=== PATIENT | female | born 1990 | race American Indian/Alaskan Native ===

== ENCOUNTER 2020-11-22 16:23 | Outpatient (CLI) | payer OTHER, MEDICAID ==
[2020-11-22 17:17] VITALS: BP 127/80
--- NOTE | 2020-11-22 19:06 | Ultrasound Report ---
ULTRASOUND BIOPHYSICAL PROFILE INDICATION / CLINICAL INFORMATION: [facility]. COMPARISON: None available. FINDINGS: BREATHING MOVEMENT = 2 GROSS BODY MOVEMENT = 2 TONE = 2 QUALITATIVE AMNIOTIC FLUID VOLUME = 2 TOTAL BIOPHYSICAL SCORE = 8 AMNIOTIC FLUID INDEX (within normal limits. PRESENTATION: Cephalic. HEART RATE (beats per minute): 161 IMPRESSION: 1. biophysical profile = 05/18 Signer Name: Terry Salcido MD Signed: 11/22/2020 7:01 PM Workstation Name: [employer]
== END 2020-11-22 18:55 | disposition home or self-care (01) ==
LOC: TRG 16:23 → APU 16:24 → TRG 16:25 → APU 16:33 → INTOOBSV 16:37 → APU 16:37 → UNDOADMOB 16:37 → TRG 18:55
PROVIDERS: ATTEND Obstetrics & Gynecology
DX: Z34.03 Encounter for supervision of normal first pregnancy, third trimester (principal); Z3A.40 40 weeks gestation of pregnancy
CPT/HCPCS: 76819

== ENCOUNTER 2020-11-27 08:27 | Inpatient (IN) | payer OTHER, MEDICAID ==
--- NOTE | 2020-11-27 09:19 | History and Physical Report ---
History of Present Illness Date of examination: 11/27/20 (here for IOL) History of present illness: EDC Confirmation: 11/17/2020 Gestational Age: 41w3d Past History : 3 Term Births: 0 Premature Births: 0 Living Children: 0 Para: 0 Mult. Births: 0 Prev : 0 Aborta: 2 Elect. Ab: 1 Spont. 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 Infection History Hx of STD: chlamydia HIV Risk Eval: low risk Hepatitis B Risk Eval: low risk Personal hx. of genital herpes: no Partner hx. of genital herpes: no Rash, Viral, or Febrile illness since last LMP? no Varicella/Chicken Pox Status: Previous Disease TB Risk: no Genetic History Congenital Heart Defect: Mom: no Dad: no Sona Disease: Mom: no Dad: no Thalassemia Mom: no Dad: no Neural Tube Defect Mom: no Dad: no Down's Syndrome Mom: no Dad: no Leroy-Sachs Mom: no Dad: no Sickle Cell Disease/Trait Mom: no Dad: no Hemophilia Mom: no Dad: no Muscular Dystrophy Mom: no Dad: no Cystic Fibrosis Mom: no Dad: no [place] Chorea Mom: no Dad: no Mental Retardation Mom: no Dad: no Fragile X Mom: no Dad: no Other Genetic/Chromosomal Disorder Mom: no Dad: no Child w/other defect Mom: no Dad: no Enviromental Exposures Xray Exposure: no Medication, drug, or alcohol use since LMP: no Chemical/Other Exposure: no Exposure to Cat Liter: no Hx of Parvovirus (Fifth Disease): no 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 Current Allergies: No known allergies Past History - Obstetrical History Expected Date of Delivery: 11/17/20 Actual Gestation: 41 Week(s) 3 Day(s) : 3 Para: 0 Hx # Term Pregnancies: 0 Number of Pregnancies: 0 Spontaneous Abortions: 1 Induced : 1 Number of Living Children: 0 Medications and Allergies Allergies Allergy/AdvReac Type Severity Reaction Status Date / Time No Known Allergies Allergy Verified 11/22/20 17:06 Home Medications Medication Instructions Recorded Confirmed Last Taken Type Acetaminophen/Codeine 1 tab PO Q6H PRN #15 tab 12/18/14 Unknown Rx [Acetaminophen-Codeine #3 TAB] Active Meds: Active Medications Mineral Oil (Mineral Oil 30 Ml Oral Liqd) 30 ml PO QHS PRN PRN Reason: Constipation Terbutaline Sulfate (Terbutaline 1 Mg/1 Ml Inj) 0.25 mg SUB-Q ONCE PRN PRN Reason: Hyperstimulation/Hypertonicity Review of Systems All systems: negative - Physical Exam Breasts: Positive: deferred Cardiovascular: Regular rate, Normal S1, Normal S2 Lungs: Positive: Clear to auscultation Abdomen: Positive: normal appearance, soft, normal bowel sounds. Negative: distention, tenderness Genitourinary (Female): Positive: normal external genitalia Vulva: both: normal Vagina: Positive: normal moisture. Negative: discharge Cervix: Negative: lesion, discharge Uterus: Positive: normal size, normal contour Adnexa: both: normal Anus/Rectum: Positive: normal perianal skin, heme negative. Negative: rectal mass, hemorrhoids Extremities: Positive: normal Deep Tendon Reflex Grade: Normal +2 - Obstetrical FHR: category 1 Uterine Contraction Monitor Mode: External Cervical Dilatation: 0 (per RN) Cervical Effacement Percentage: 30 station: -3 Uterine Contraction Pattern: Irregular Uterine Tone Measurement Phase: Resting Uterine Contraction Intensity: Mild Results Result Diagrams: 11/27/20 09:35 All other labs normal. GBS Negative HBsAg Screen Negative Negative *1 RPR Non Reactive Non Reactive *2 Rubella Antibodies, IgG 1.95 index Immune >0.99 *3 Non-immune <0.90 Equivocal 0.90 - 0.99 Immune >0.99 ABO Grouping AB *4 Rh Factor Negative *5 Please note: Prior records for this patient's ABO / Rh type are not available for additional verification. Antibody Screen Negative Negative *6 WBC 6.3 x10E3/uL 3.4-10.8 *7 RBC 4.57 x10E6/uL 3.77-5.28 *8 Hemoglobin 12.5 g/dL 11.1-15.9 *9 Hematocrit 38.8 % 34.0-46.6 *10 MCV 85 fL 79-97 *11 MCH 27.4 pg 26.6-33.0 *12 MCHC 32.2 g/dL 31.5-35.7 *13 RDW 13.0 % 11.7-15.4 *14 Platelets 306 x10E3/uL 150-450 *15 Neutrophils 55 % Not Estab. *16 Lymphs 35 % Not Estab. *17 Monocytes 8 % Not Estab. *18 Eos 2 % Not Estab. *19 Basos 0 % Not Estab. *20 ! Immature Cells <No Reported Value> *21 Neutrophils (Absolute) 3.4 x10E3/uL 1.4-7.0 *22 Lymphs (Absolute) 2.2 x10E3/uL 0.7-3.1 *23 Monocytes(Absolute) 0.5 x10E3/uL 0.1-0.9 *24 Eos (Absolute) 0.2 x10E3/uL 0.0-0.4 *25 Baso (Absolute) 0.0 x10E3/uL 0.0-0.2 *26 ! Immature Granulocytes 0 % Not Estab. *27 ! Immature Grans (Abs) 0.0 x10E3/uL 0.0-0.1 *28 ! NRBC <No Reported Value> *29 Hematology Comments: <No Reported Value> *30 Tests: (2) HIV Ag/Ab with Reflex (616873) HIV Screen 4th Generation wRfx Non Reactive Non Reactive *31 Tests: (3) HCV Ab w/Rflx to Verification ([id number]) ! HCV Ab 0.1 s/co ratio 0.0-0.9 *32 Tests: (4) Comment: ([id number]) ! Comment: [facility] *33 Non reactive HCV antibody screen is consistent with no HCV infection, unless recent infection is suspected or other evidence exists to indicate HCV infection. Tests: (5) Urine Culture, Routine (430472) Urine Culture, Routine Final report *34 Tests: (6) Result ([id number]) ! Result 1 No growth *35 Assessment and Plan 30yo @ 41w for IOL GBS Negative. Will place Cervidil. All orders in EMR
[2020-11-27] MEDS ORDERED: DINOPROSTONE 10 MG VAG SUPP VG SCH (09:30)
[2020-11-27] MEDS ORDERED: LACTATED RINGERS 1,000 ML IV SCH (09:30)
[2020-11-27] MEDS ORDERED: ACETAMINOPHEN 325 MG TAB PO PRN (09:30)
[2020-11-27] MEDS ORDERED: CARBOPROST TROMETHAMINE 250 MCG/1 ML INJ IM PRN (09:30)
[2020-11-27] MEDS ORDERED: LIDOCAINE (2%) 20 MG/1 ML VIAL 20 ML MDV INFILTRATI SCH (09:30)
[2020-11-27] MEDS ORDERED: METHYLERGONOVINE MALEATE 0.2 MG/ML VIAL IM PRN (09:30)
[2020-11-27] MEDS ORDERED: TERBUTALINE 1 MG/1 ML INJ SUB-Q PRN (09:30)
[2020-11-27] MEDS ORDERED: fentaNYL 100 MCG/2 ML INJ IV PRN (09:30)
[2020-11-27] MEDS ORDERED: ePHEDrine SULFATE 50 MG/1 ML INJ IV PRN (09:30)
[2020-11-27] MEDS ORDERED: OXYTOCIN 10 UNIT/1 ML INJ IM PRN (09:30)
[2020-11-27 09:50] LABS: Hematocrit 34.2 % (30.3-42.9); Hemoglobin 11.4 gm/dl (10.1-14.3); Mean Corpuscular HGB Conc 33 % (30-34); Mean Corpuscular Volume 85 fl (79-97); Platelet Count 168 K/mm3 (140-440); Red Blood Count 4.04 M/mm3 (3.65-5.03); Red Cell Distribution Width 15.2 % (13.2-15.2)
[2020-11-27] MEDS ORDERED: OXYTOCIN DRIP 30 UNITS/500 ML BAG IV SCH ×2 (10:00)
[2020-11-27] MEDS ORDERED: miSOPROStol 200 MCG TAB PR PRN (10:00)
[2020-11-27] MEDS ORDERED: MINERAL OIL 30 ML ORAL LIQD PO PRN (10:00)
[2020-11-27] MEDS ORDERED: ONDANSETRON 4 MG/2 ML INJ IV PRN (10:00)
--- NOTE | 2020-11-27 19:33 | Event Note ---
Date: 11/27/20 At the pt bedside tonight to see if her or her has questions regarding plan of care. Both expressed no questions. Will con't cervidil for now and revaluate when it comes out at 2300. RN also at bedside and aware of the plan of care.
--- NOTE | 2020-11-28 00:44 | Event Note ---
Date: 11/28/20 Called by RN. Cervidil removed and pt cx remains unchanged(closed). Will allow pt to rest for a few hours and replace cervidial at 3am. Plan of care d/w RN and questions were addressed and answered. She voiced understanding.
[2020-11-28] MEDS ORDERED: DINOPROSTONE 10 MG VAG SUPP VG ONE ×2 (03:00→18:18)
--- NOTE | 2020-11-28 06:52 | Progress Note ---
Assessment and Plan Pt states she is feeling well No voiced c/o. Cervidil in place Deferred SVE. Encouraged to be OOB to chair. AM care. Will continue plan Cervidil out @ 1500.All concerns addressed. Subjective - Subjective Date of service: 11/28/20 (No c/o voiced) Principal diagnosis: IUP 41 w IOL Interval history: EDC Confirmation: 11/17/2020 Gestational Age: 41w3d Past History : 3 Term Births: 0 Premature Births: 0 Living Children: 0 Para: 0 Mult. Births: 0 Prev : 0 Aborta: 2 Elect. Ab: 1 Spont. 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 Infection History Hx of STD: chlamydia HIV Risk Eval: low risk Hepatitis B Risk Eval: low risk Personal hx. of genital herpes: no Partner hx. of genital herpes: no Rash, Viral, or Febrile illness since last LMP? no Varicella/Chicken Pox Status: Previous Disease TB Risk: no Genetic History Congenital Heart Defect: Mom: no Dad: no Sona Disease: Mom: no Dad: no Thalassemia Mom: no Dad: no Neural Tube Defect Mom: no Dad: no Down's Syndrome Mom: no Dad: no Leroy-Sachs Mom: no Dad: no Sickle Cell Disease/Trait Mom: no Dad: no Hemophilia Mom: no Dad: no Muscular Dystrophy Mom: no Dad: no Cystic Fibrosis Mom: no Dad: no [place] Chorea Mom: no Dad: no Mental Retardation Mom: no Dad: no Fragile X Mom: no Dad: no Other Genetic/Chromosomal Disorder Mom: no Dad: no Child w/other defect Mom: no Dad: no Enviromental Exposures Xray Exposure: no Medication, drug, or alcohol use since LMP: no Chemical/Other Exposure: no Exposure to Cat Liter: no Hx of Parvovirus (Fifth Disease): no 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 Current Allergies: No known allergies Patient reports: movement normal Objective - Vital Signs Vital Signs: Vital Signs - 12hr 11/27/20 11/27/20 11/27/20 18:48 18:51 18:53 Temperature Pulse Rate 94 H 96 H Respiratory Rate Blood Pressure Blood Pressure [Left] O2 Sat by Pulse 98 90 99 Oximetry 11/27/20 11/27/20 11/27/20 19:00 19:03 20:42 Temperature 96.9 F L Pulse Rate 98 H 81 87 Respiratory 12 Rate Blood Pressure 125/79 Blood Pressure 125/79 [Left] O2 Sat by Pulse 97 Oximetry 11/27/20 11/27/20 11/27/20 20:47 20:52 20:57 Temperature Pulse Rate 98 H 96 H 92 H Respiratory Rate Blood Pressure Blood Pressure [Left] O2 Sat by Pulse 99 100 98 Oximetry 11/27/20 11/27/20 11/27/20 21:02 21:07 21:12 Temperature Pulse Rate 91 H 88 85 Respiratory Rate Blood Pressure Blood Pressure [Left] O2 Sat by Pulse 99 99 99 Oximetry 11/27/20 11/27/20 11/27/20 21:17 21:22 21:23 Temperature Pulse Rate 93 H 87 101 H Respiratory Rate Blood Pressure Blood Pressure [Left] O2 Sat by Pulse 99 97 83 L Oximetry 11/27/20 11/27/20 11/27/20 21:27 21:30 21:32 Temperature Pulse Rate 75 85 86 Respiratory Rate Blood Pressure Blood Pressure [Left] O2 Sat by Pulse 82 L 92 95 Oximetry 11/27/20 11/27/20 11/27/20 21:36 21:37 21:51 Temperature Pulse Rate 96 H 102 H Respiratory Rate Blood Pressure Blood Pressure [Left] O2 Sat by Pulse 92 86 86 Oximetry 11/27/20 11/27/20 11/27/20 21:56 22:01 22:04 Temperature Pulse Rate 103 H 108 H 109 H Respiratory Rate Blood Pressure Blood Pressure [Left] O2 Sat by Pulse 99 99 94 Oximetry 11/27/20 11/27/20 11/27/20 22:15 22:20 22:21 Temperature Pulse Rate 97 H 100 H 99 H Respiratory Rate Blood Pressure Blood Pressure [Left] O2 Sat by Pulse 80 L 99 94 Oximetry 11/27/20 11/27/20 11/27/20 22:25 22:28 22:30 Temperature Pulse Rate 100 H 106 H 101 H Respiratory Rate Blood Pressure Blood Pressure [Left] O2 Sat by Pulse 100 81 L 98 Oximetry 11/27/20 11/27/20 11/27/20 22:35 22:40 22:45 Temperature Pulse Rate 94 H 101 H 95 H Respiratory Rate Blood Pressure Blood Pressure [Left] O2 Sat by Pulse 98 97 99 Oximetry 11/27/20 11/27/20 11/27/20 22:50 22:51 22:56 Temperature Pulse Rate 90 98 H 91 H Respiratory Rate Blood Pressure Blood Pressure [Left] O2 Sat by Pulse 80 L 98 98 Oximetry 11/27/20 11/27/20 11/27/20 23:01 23:06 23:19 Temperature Pulse Rate 92 H 86 104 H Respiratory Rate Blood Pressure Blood Pressure [Left] O2 Sat by Pulse 98 98 86 Oximetry 11/27/20 11/27/20 11/27/20 23:24 23:26 23:29 Temperature Pulse Rate 95 H 108 H 106 H Respiratory Rate Blood Pressure Blood Pressure [Left] O2 Sat by Pulse 95 91 98 Oximetry 11/27/20 11/27/20 11/27/20 23:34 23:39 23:44 Temperature Pulse Rate 99 H 93 H 90 Respiratory Rate Blood Pressure Blood Pressure [Left] O2 Sat by Pulse 98 98 99 Oximetry 11/27/20 11/28/20 11/28/20 23:49 00:08 00:13 Temperature Pulse Rate 82 32 L 110 H Respiratory Rate Blood Pressure Blood Pressure [Left] O2 Sat by Pulse 98 94 93 Oximetry 11/28/20 11/28/20 11/28/20 00:14 00:18 00:23 Temperature Pulse Rate 111 H 88 88 Respiratory Rate Blood Pressure Blood Pressure [Left] O2 Sat by Pulse 86 98 99 Oximetry 11/28/20 11/28/20 11/28/20 00:28 00:33 00:38 Temperature Pulse Rate 87 90 94 H Respiratory Rate Blood Pressure Blood Pressure [Left] O2 Sat by Pulse 98 98 98 Oximetry 11/28/20 11/28/20 11/28/20 00:43 00:58 00:59 Temperature Pulse Rate 90 102 H 100 H Respiratory Rate Blood Pressure Blood Pressure [Left] O2 Sat by Pulse 91 96 65 L Oximetry 11/28/20 11/28/20 11/28/20 01:03 01:08 01:13 Temperature Pulse Rate 90 85 84 Respiratory Rate Blood Pressure Blood Pressure [Left] O2 Sat by Pulse 97 97 96 Oximetry 11/28/20 11/28/20 11/28/20 01:18 01:23 01:28 Temperature Pulse Rate 84 88 86 Respiratory Rate Blood Pressure Blood Pressure [Left] O2 Sat by Pulse 97 97 97 Oximetry 11/28/20 11/28/20 11/28/20 01:33 01:38 01:43 Temperature Pulse Rate 90 103 H 102 H Respiratory Rate Blood Pressure Blood Pressure [Left] O2 Sat by Pulse 98 99 95 Oximetry 11/28/20 11/28/20 11/28/20 01:46 01:48 01:53 Temperature Pulse Rate 83 103 H 89 Respiratory Rate Blood Pressure Blood Pressure [Left] O2 Sat by Pulse 94 98 96 Oximetry 11/28/20 11/28/20 11/28/20 01:58 02:03 02:04 Temperature Pulse Rate 97 H 91 H 104 H Respiratory Rate Blood Pressure Blood Pressure [Left] O2 Sat by Pulse 97 98 76 L Oximetry 11/28/20 11/28/20 11/28/20 03:05 03:10 03:15 Temperature Pulse Rate 69 93 H 93 H Respiratory Rate Blood Pressure Blood Pressure [Left] O2 Sat by Pulse 83 L 98 98 Oximetry 11/28/20 11/28/20 11/28/20 03:20 03:25 03:30 Temperature Pulse Rate 76 87 91 H Respiratory Rate Blood Pressure Blood Pressure [Left] O2 Sat by Pulse 99 97 97 Oximetry 11/28/20 11/28/20 11/28/20 03:35 03:40 03:45 Temperature Pulse Rate 88 90 82 Respiratory Rate Blood Pressure Blood Pressure [Left] O2 Sat by Pulse 97 98 98 Oximetry 11/28/20 11/28/20 11/28/20 03:50 03:55 04:00 Temperature 98.2 F Pulse Rate 75 92 H 80 Respiratory Rate Blood Pressure Blood Pressure [Left] O2 Sat by Pulse 97 97 97 Oximetry 11/28/20 11/28/20 11/28/20 04:05 04:10 04:15 Temperature Pulse Rate 72 91 H 83 Respiratory Rate Blood Pressure Blood Pressure [Left] O2 Sat by Pulse 97 98 98 Oximetry 11/28/20 11/28/20 11/28/20 04:20 04:25 04:30 Temperature Pulse Rate 84 82 75 Respiratory Rate Blood Pressure Blood Pressure [Left] O2 Sat by Pulse 97 97 98 Oximetry 11/28/20 11/28/20 11/28/20 04:35 04:40 04:45 Temperature Pulse Rate 88 89 80 Respiratory Rate Blood Pressure Blood Pressure [Left] O2 Sat by Pulse 97 98 98 Oximetry 11/28/20 11/28/20 11/28/20 04:59 05:04 05:09 Temperature Pulse Rate 90 82 Respiratory Rate Blood Pressure Blood Pressure [Left] O2 Sat by Pulse 96 98 98 Oximetry 11/28/20 11/28/20 11/28/20 05:14 05:19 05:31 Temperature Pulse Rate 71 80 85 Respiratory Rate Blood Pressure Blood Pressure [Left] O2 Sat by Pulse 99 98 99 Oximetry 11/28/20 11/28/20 11/28/20 05:36 05:37 05:41 Temperature Pulse Rate 90 84 82 Respiratory Rate Blood Pressure Blood Pressure [Left] O2 Sat by Pulse 99 93 97 Oximetry 11/28/20 11/28/20 11/28/20 05:46 05:51 05:56 Temperature Pulse Rate 90 78 97 H Respiratory Rate Blood Pressure Blood Pressure [Left] O2 Sat by Pulse 97 97 96 Oximetry 11/28/20 11/28/20 11/28/20 06:01 06:06 06:11 Temperature Pulse Rate 88 81 83 Respiratory Rate Blood Pressure Blood Pressure [Left] O2 Sat by Pulse 96 97 97 Oximetry 11/28/20 11/28/20 11/28/20 06:16 06:21 06:26 Temperature Pulse Rate 86 90 91 H Respiratory Rate Blood Pressure 120/76 Blood Pressure [Left] O2 Sat by Pulse 97 97 98 Oximetry 11/28/20 11/28/20 11/28/20 06:31 06:36 06:41 Temperature Pulse Rate 77 78 79 Respiratory Rate Blood Pressure Blood Pressure [Left] O2 Sat by Pulse 97 98 97 Oximetry - Exam Breasts: deferred Cardiovascular: Regular rate Abdomen: Present: normal appearance, soft. Absent: distention, tenderness Vulva: both: normal Uterus: Present: normal FHR: auscultation normal, category 1 Uterine Contraction Monitor Mode: External Uterine Contraction Pattern: Irregular Uterine Tone Measurement Phase: Resting Uterine Contraction Intensity: Mild Extremities: normal Deep Tendon Reflex Grade: Normal +2 - Labs Labs: Laboratory Results - last 24 hr 11/27/20 11/27/20 11/27/20 09:32 09:35 Unknown WBC 7.2 RBC 4.04 Hgb 11.4 Hct 34.2 MCV 85 MCH 28 MCHC 33 RDW 15.2 Plt Count 168 Coronavirus (PCR) Negative Blood Type AB NEGATIVE Antibody Screen Negative
--- NOTE | 2020-11-28 20:53 | Progress Note ---
Assessment and Plan - Patient Problems (1) 41 weeks gestation of Current Visit: Yes Status: Acute Plan to address problem: 3rd cervidil placed at 1800, will remove in am ? pitocin vs Cytotec. Plan of care explained, questions encouraged and answered. (2) RhD negative Current Visit: Yes Status: Acute Subjective - Subjective Date of service: 11/28/20 Principal diagnosis: IUP 41 w IOL Patient reports: movement normal, no new complaints Objective - Vital Signs Vital Signs: Vital Signs - 12hr 11/28/20 11/28/20 11/28/20 08:57 09:12 09:17 Temperature Pulse Rate 84 93 H 96 H Respiratory Rate Blood Pressure Blood Pressure [Left] O2 Sat by Pulse 97 100 98 Oximetry 11/28/20 11/28/20 11/28/20 09:22 09:27 09:32 Temperature Pulse Rate 94 H 83 80 Respiratory Rate Blood Pressure Blood Pressure [Left] O2 Sat by Pulse 96 96 97 Oximetry 11/28/20 11/28/20 11/28/20 09:37 09:42 09:47 Temperature Pulse Rate 86 88 92 H Respiratory Rate Blood Pressure Blood Pressure [Left] O2 Sat by Pulse 96 95 96 Oximetry 11/28/20 11/28/20 11/28/20 09:52 09:57 10:02 Temperature Pulse Rate 137 H 84 85 Respiratory Rate Blood Pressure Blood Pressure [Left] O2 Sat by Pulse 97 97 96 Oximetry 11/28/20 11/28/20 11/28/20 10:07 10:12 10:17 Temperature Pulse Rate 122 H 108 H 88 Respiratory Rate Blood Pressure Blood Pressure [Left] O2 Sat by Pulse 97 97 97 Oximetry 11/28/20 11/28/20 11/28/20 10:22 10:27 10:32 Temperature Pulse Rate 86 88 101 H Respiratory Rate Blood Pressure Blood Pressure [Left] O2 Sat by Pulse 97 96 95 Oximetry 11/28/20 11/28/20 11/28/20 10:36 10:37 10:42 Temperature Pulse Rate 123 H 128 H 113 H Respiratory Rate Blood Pressure Blood Pressure [Left] O2 Sat by Pulse 90 97 97 Oximetry 11/28/20 11/28/20 11/28/20 10:47 10:52 10:57 Temperature Pulse Rate 111 H 104 H 105 H Respiratory Rate Blood Pressure Blood Pressure [Left] O2 Sat by Pulse 97 99 97 Oximetry 11/28/20 11/28/20 11/28/20 11:02 11:07 11:12 Temperature Pulse Rate 102 H 99 H 108 H Respiratory Rate Blood Pressure Blood Pressure [Left] O2 Sat by Pulse 100 99 97 Oximetry 11/28/20 11/28/20 11/28/20 11:17 11:31 11:36 Temperature Pulse Rate 104 H 57 L 106 H Respiratory Rate Blood Pressure Blood Pressure [Left] O2 Sat by Pulse 98 98 99 Oximetry 11/28/20 11/28/20 11/28/20 11:41 11:46 11:51 Temperature Pulse Rate 94 H 108 H 93 H Respiratory Rate Blood Pressure Blood Pressure [Left] O2 Sat by Pulse 98 97 98 Oximetry 11/28/20 11/28/20 11/28/20 11:56 12:01 12:06 Temperature Pulse Rate 100 H 102 H 91 H Respiratory Rate Blood Pressure Blood Pressure [Left] O2 Sat by Pulse 97 99 99 Oximetry 11/28/20 11/28/20 11/28/20 12:11 12:16 12:21 Temperature Pulse Rate 95 H 81 107 H Respiratory Rate Blood Pressure Blood Pressure [Left] O2 Sat by Pulse 99 97 98 Oximetry 11/28/20 11/28/20 11/28/20 12:34 12:39 12:44 Temperature Pulse Rate 96 H 93 H 89 Respiratory Rate Blood Pressure Blood Pressure [Left] O2 Sat by Pulse 98 97 97 Oximetry 11/28/20 11/28/20 11/28/20 12:49 12:54 12:59 Temperature Pulse Rate 102 H 94 H 95 H Respiratory Rate Blood Pressure Blood Pressure [Left] O2 Sat by Pulse 98 98 97 Oximetry 11/28/20 11/28/20 11/28/20 13:04 13:09 13:14 Temperature Pulse Rate 98 H 101 H 103 H Respiratory Rate Blood Pressure Blood Pressure [Left] O2 Sat by Pulse 97 96 98 Oximetry 11/28/20 11/28/20 11/28/20 13:19 13:33 13:38 Temperature Pulse Rate 89 26 L 92 H Respiratory Rate Blood Pressure Blood Pressure [Left] O2 Sat by Pulse 97 95 98 Oximetry 11/28/20 11/28/20 11/28/20 13:43 13:48 13:53 Temperature Pulse Rate 84 90 85 Respiratory Rate Blood Pressure Blood Pressure [Left] O2 Sat by Pulse 97 97 96 Oximetry 11/28/20 11/28/20 11/28/20 13:58 14:03 14:08 Temperature Pulse Rate 91 H 107 H 91 H Respiratory Rate Blood Pressure Blood Pressure [Left] O2 Sat by Pulse 96 98 97 Oximetry 11/28/20 11/28/20 11/28/20 14:13 14:18 14:23 Temperature Pulse Rate 99 H 98 H 97 H Respiratory Rate Blood Pressure Blood Pressure [Left] O2 Sat by Pulse 97 97 97 Oximetry 11/28/20 11/28/20 11/28/20 14:28 14:29 14:33 Temperature Pulse Rate 96 H 96 H 106 H Respiratory Rate Blood Pressure Blood Pressure [Left] O2 Sat by Pulse 97 94 97 Oximetry 11/28/20 11/28/20 11/28/20 15:07 15:12 15:17 Temperature Pulse Rate 111 H 96 H Respiratory Rate Blood Pressure Blood Pressure [Left] O2 Sat by Pulse 97 97 97 Oximetry 11/28/20 11/28/20 11/28/20 15:18 15:22 15:24 Temperature Pulse Rate 104 H 113 H 62 Respiratory Rate Blood Pressure Blood Pressure [Left] O2 Sat by Pulse 94 95 94 Oximetry 11/28/20 11/28/20 11/28/20 15:27 15:31 15:32 Temperature Pulse Rate 94 H 103 H 97 H Respiratory Rate Blood Pressure Blood Pressure [Left] O2 Sat by Pulse 95 94 95 Oximetry 11/28/20 11/28/20 11/28/20 15:37 15:42 15:44 Temperature Pulse Rate 96 H 95 H 93 H Respiratory Rate Blood Pressure Blood Pressure [Left] O2 Sat by Pulse 96 95 94 Oximetry 11/28/20 11/28/20 11/28/20 15:47 15:52 15:56 Temperature Pulse Rate 91 H 91 H Respiratory Rate Blood Pressure Blood Pressure [Left] O2 Sat by Pulse 96 98 86 Oximetry 11/28/20 11/28/20 18:59 19:02 Temperature 97.8 F Pulse Rate 71 71 Respiratory 12 Rate Blood Pressure 120/82 Blood Pressure 120/82 [Left] O2 Sat by Pulse Oximetry - Exam Breasts: deferred Cardiovascular: Regular rate Lungs: Normal air movement
--- NOTE | 2020-11-29 07:35 | Progress Note ---
Assessment and Plan cervidil removed @ 7832 by rn, no change in SVE. Will start cytotec after AM care. - Patient Problems (1) 41 weeks gestation of Current Visit: Yes Status: Acute (2) RhD negative Current Visit: Yes Status: Acute Plan to address problem: rhogam workup Subjective - Subjective Date of service: 11/29/20 Principal diagnosis: IUP 41+5 w IOL Patient reports: movement normal, no new complaints Objective - Exam Breasts: deferred Cardiovascular: Regular rate Lungs: Normal air movement Abdomen: Present: normal appearance, soft Vulva: both: normal FHR: auscultation normal Uterine Contraction Monitor Mode: External Uterine Contraction Pattern: Irregular Uterine Tone Measurement Phase: Resting Uterine Contraction Intensity: Mild Extremities: normal Deep Tendon Reflex Grade: Normal +2
[2020-11-29] MEDS ORDERED: miSOPROStol 25 MCG TAB VG SCH (08:00)
[2020-11-29] MEDS ORDERED: OXYTOCIN DRIP 30 UNITS/500 ML BAG IV SCH ×2 (16:45→22:08)
--- NOTE | 2020-11-29 18:17 | Event Note ---
Date: 11/29/20 Patient with complaint contractions. Patient is status post several Cervidil insertions and Cytotec starting today with no change in cervix. Discussed patient's options including section this evening due to 3-day long induction attempt (but patient has been without Pitocin during this trial) versus allowing to rest if not in labor this evening and do low-dose Pitocin overnight and start induction Pitocin in the morning. Patient desires to try to eat this evening and rest with low-dose Pitocin tonight.
[2020-11-29] MEDS ORDERED: propofoL 200 MG/20 ML VIAL IV ONE (18:48)
[2020-11-29] MEDS ORDERED: SUCCINYLCHOLINE CHLORIDE 200 MG/10 ML INJ MDV ONE (18:48)
[2020-11-29] MEDS ORDERED: WATER FOR IRRIG STERILE 1,500 ML BOTTLE IR ONE (18:50)
[2020-11-29] MEDS ORDERED: SODIUM CHLORIDE 0.9% IRR 1,500 ML BOTTLE IR ONE (18:50)
[2020-11-29] MEDS ORDERED: ceFAZolin/Water 2 GM/20 ML 2 GM/20 ML SYRINGE IV ONE (18:58)
[2020-11-29] MEDS ORDERED: BICITRA ORAL LIQD 30ML ONE (18:58)
[2020-11-29] MEDS ORDERED: METOCLOPRAMIDE 10 MG/2 ML INJ ONE (18:59)
[2020-11-29] MEDS ORDERED: FAMOTIDINE 20 MG/2 ML INJ IV ONE (18:59)
[2020-11-29] MEDS ORDERED: ceFAZolin/STERILE WATER 2 GM/20 ML SYRINGE IV NR (19:00)
[2020-11-29] MEDS ORDERED: BICITRA ORAL LIQD 30ML PO ONE (19:03)
[2020-11-29] MEDS ORDERED: METOCLOPRAMIDE 10 MG/2 ML INJ IV ONE (19:05)
[2020-11-29] MEDS ORDERED: ONDANSETRON 4 MG/2 ML INJ ONE (19:26)
[2020-11-29] MEDS ORDERED: KETOROLAC 30 MG/1 ML INJ ONE (19:26)
[2020-11-29] MEDS ORDERED: dexAMETHasone 20 MG/5 ML VIAL ONE (19:26)
[2020-11-29] MEDS ORDERED: BUPIVACAINE/PF (0.5%) 5 MG/1 ML 30 ML VIAL INFILTRATI ONE (19:26)
[2020-11-29] MEDS ORDERED: FAMOTIDINE 20 MG/2 ML INJ IV SCH (20:00)
[2020-11-29] MEDS ORDERED: NALOXONE 0.4 MG/1 ML INJ IV PRN ×2 (20:08→22:08)
[2020-11-29] MEDS ORDERED: HYDROmorphone 1 MG/1 ML INJ IV PRN (20:08)
[2020-11-29] MEDS ORDERED: diphenhydrAMINE 50 MG/ML VIAL IV PRN (20:08)
[2020-11-29] MEDS ORDERED: PROMETHAZINE 25 MG RECT SUPP PR PRN (20:08)
[2020-11-29] MEDS ORDERED: PROMETHAZINE 25 MG TAB PO PRN (20:08)
[2020-11-29] MEDS ORDERED: NalbUPHINE 10 MG/1 ML INJ IV PRN (20:08)
--- NOTE | 2020-11-29 20:09 | Anesthesia Day of Surgery ---
Anesthesia Day of Surgery - Day of Surgery Patient Examined: Yes Patient H&P Reviewed: Yes Patient is NPO: Yes Beta Blockers: No Cardiac Clearance: No Pulmonary Clearance: No David's Test: N/A
--- NOTE | 2020-11-29 20:09 | Anesthesia Consultation ---
Anesthesia Consult and Med Hx Date of service: 11/29/20 - Airway Anesthetic Teeth Evaluation: Good ROM Head & Neck: Adequate Mental/Hyoid Distance: Adequate Mallampati Class: Class II Intubation Access Assessment: Probably Good - Pulmonary Exam CTA: Yes - Cardiac Exam Cardiac Exam: RRR - Pre-Operative Health Status ASA Pre-Surgery Classification: ASA2, Emergency Proposed Anesthetic Plan: Spinal Nerve Block: TAP - Pulmonary Hx Smoking: No Hx Asthma: No COPD: No Hx Pneumonia: No Hx Sleep Apnea: No - Cardiovascular System Hx Hypertension: No Hx Heart Attack/AMI: No Hx Angina: No - Central Nervous System Hx Seizures: No Hx Psychiatric Problems: No - Gastrointestinal Hx Gastroesophageal Reflux Disease: No - Endocrine Hx Renal Disease: No Hx End Stage Renal Disease: No Hx Insulin Dependent Diabetes: No Hx Non-Insulin Dependent Diabetes: No Hx Hypothyroidism: No Hx Hyperthyroidism: No - Hematic Hx Anemia: No Hx Sickle Cell Disease: No - Other Systems Hx Alcohol Use: No
--- NOTE | 2020-11-29 20:10 | Progress Note ---
Spinal Anesthesia Block - Spinal Anesthesia Block Start Time: 18:51 Stop Time: 18:59 Performed by:: KALYANI SINGH Procedure: Spinal anesthesia block is being performed for [C/S]. H&P, labs have been reviewed. Patient's questions and concerns have been answered. Informed consent has been performed. Timeout has was performed. Patient in sitting position on side of bed. Sterile prep and drape was performed. 3 mL 1% lidocaine skin wheal at L [3]-L [4]. Needle introducer advanced. 25-gauge spinal needle advanced, [+] CSF [-] blood. [Marcaine 10.5mg and Precedex 5mcg] Spinal dose was given. All needles removed. Patient tolerated procedure well.
--- NOTE | 2020-11-29 20:11 | Progress Note ---
Regional Anesthesia Block - Regional Anesthesia Block Start Time: 20:03 Stop Time: 20:10 Performed By:: KALYANI SINGH Procedure: Patient consented for TAP block for post surgical pain management. Patient identified, monitors placed, and time out performed. Mid axillary TAP identified bilaterally via ultrasound. Skin prepped bilaterally with [chlorhexidine] and [20g stimuplex] needle advanced to the TAP. 35ml [Marcaine 0.25% with 25mcg Pre cedex and Decadron 5mg] injected under ultrasound guidance on the [left] side. 35ml [Marcaine 0.25% with 25mcg Precedex and Decadron 5mg] injected under ultrasound guidance on the [right] side.
--- NOTE | 2020-11-29 20:14 | XRay Report ---
ABDOMEN 1 VIEW INDICATION / CLINICAL INFORMATION: MAIN. COMPARISON: None available. FINDINGS: TUBES / LINES: None. BOWEL GAS PATTERN: No significant abnormality. FREE AIR / EXTRALUMINAL GAS: None seen. ADDITIONAL FINDINGS: No significant additional findings. Specifically, no evidence of radiopaque ann marie ined foreign bodies over the abdomen or pelvis. Partially visualized catheter tubing over the lower p abdoul may be external to the patient. IMPRESSION: 1. no evidence of radiopaque retained foreign body over the abdomen or pelvis. The partially visualiz ed catheter tubing over the lower pelvis may be external to patient. Signer Name: Marino Taylor MD Signed: 11/29/2020 8:09 PM Workstation Name: [id number]
--- NOTE | 2020-11-29 20:18 | Operative Report ---
Operative Report Operative Report: Date of procedure: November 29, 2020 Pre-operative diagnosis: Intrauterine of 41 weeks 5 days with recurrent prolonged bradycardia. Nonreassuring heart rate remote from delivery plus complex right ovarian cyst Post-operative diagnosis: Same Procedure name(s): Emergent primary low transverse section Surgeon: Adam Kern MD Business Project Manager: CSrd Anesthesia: Spinal EBL: 600 mL Complications: None Findings: Patient with a normal uterus normal tubes bilaterally normal left ovary with a approximately 7 cm complex ovarian cyst on her right. Female infant weight 6 pounds 6 ounces Apgars 8 at 1 minute and 9 at 5 minutes Specimen(s): None Indication: Patient had a prolonged bradycardia in the 50s while being induced with Cytotec. Patient was brought back to the operating room in a stat manner. heart tones did recover to the 130s on the operating table. The decision was made to move to operative delivery due to the patient prolonged bradycardia and prolonged induction. Patient advised of the risks of infection, bleeding possibly heavy enough to require blood transfusion, and possible damage to her bowel, bladder or ureter. All questions were answered and patient agrees to proceed. Procedure: The patient was brought to the operating room in a stat fashion. After stable heart tones obtained, spinal anesthesia was placed without any difficulty. She was then placed in left lateral tilt. A Pfannenstiel incision was made. This incision was taken down to the fascia. The fascia was then nicked in the midline. This incision was extended out laterally with Correa scissors. The fascia was then sharply and bluntly from the underlying rectus muscles. The rectus muscles were bluntly and sharply . The peritoneum was then entered with the glass cutting machine operator's fingers. This incision was spread vertically with care not to damage the bladder below. Herbie self- retaining retractor was then placed. The bladder flap was then formed sharply and bluntly with Metzenbaum scissors. Bladder blade replaced. A transverse incision was made in lower uterine segment. This incision was extended laterally with the operators fingers. The amniotic sac was then entered bluntly with the glass cutting machine operator's fingers. The was delivered from the vertex position. Bulb suction on the mother's abdomen. Cord was double clamped and cut. The was then passed to the nursery personnel who were in attendance. The above scores were given by the nursery personnel. The placenta was then bluntly removed. The uterus was then externalized and wiped clean the remaining products. The uterine incision was closed in layers. The first incision was closed in a locking manner using 0 Vicryl. This was followed by imbricating stitch also with 0 Vicryl. This closure was hemostatic. The ovarian cyst was then drained clear fluid. The bladder flap was copiously irrigated and found to be hemostatic. The pelvis was copiously irrigated and found to be hemostatic. The uterus was then placed back to the patient's abdomen. The retractors were removed. The rectus muscles were inspected and found to be hemostatic. The fascia was then closed in a running manner using 0 Vicryl. This incision was hemostatic irrigation Bovie. The skin was reapproximated with 4-0 Vicryl subcuticularly. Dermabond was placed over this skin incision. Patient had a x- ray done due to discrepancy instrument count. X-ray showed no evidence of retained equipment. The patient tolerated procedure well. Her urine was clear. The was admitted to the well baby nursery. The patient was accompanied to recovery room in good condition. .
[2020-11-29] MEDS ORDERED: D5W/LACTATED RINGERS 1,000 ML IV SCH (22:08)
[2020-11-29] MEDS ORDERED: WITCH HAZEL/ GLYCERIN PAD TP PRN (22:08)
[2020-11-29] MEDS ORDERED: MAGNESIUM HYDROXIDE (MOM) ORAL LIQD UDC PO PRN (22:08)
[2020-11-29] MEDS ORDERED: LANOLIN/ZINC/DIMETHICONE (LANSINOH) 7 GM TP PRN (22:08)
[2020-11-30] MEDS: KETOROLAC 30 MG/1 ML INJ IV SCH ×3 (01:13→16:03)
[2020-11-30] MEDS: ceFAZolin/NS 1 GM/50 ML 1 GM/50 ML BAG IV SCH ×2 (02:24→12:21)
--- NOTE | 2020-11-30 07:48 | Post Anesthesia Evaluation ---
- Post Anesthesia Evaluation Patient Participated: Yes Airway Patent: Yes Stable Respiratory Function: Yes Nausea/Vomiting: No Temp > 96.8F: Yes Pain Manageable: Yes Adequeate Hydration: Yes Anesthesia Complications: No Block Receding Appropriately: Yes Patient on Ventilator: No
[2020-11-30] MEDS: PRENATAL VIT27-FE FUMARATE-FOLIC ACID VIT TAB PO SCH (09:21)
[2020-11-30] MEDS: FERROUS SULFATE 325 MG TAB PO SCH (09:21)
--- NOTE | 2020-11-30 10:14 | Progress Note ---
Assessment and Plan Patient resting, no complaints. Incision dry and intact. H&H 11.0/33.0, VSSAF - Patient Problems (1) RhD negative Current Visit: Yes Status: Acute (2) delivery delivered Current Visit: Yes Status: Acute Plan to address problem: Continue post op pathway. Advance diet and activity as tolerated Anticipate discharge home tomorrow if stable Subjective - Subjective Date of service: 11/30/20 Principal diagnosis: Post Op Day 1 Patient reports: appetite normal, pain well controlled, flatus, no dizzy ambulation, no nauseated [place]: doing well, bottle feeding (Breat/Bottle feeding) Objective - Vital Signs Latest vital signs: Vital Signs Temp Pulse Resp BP BP Pulse Ox 11/30/20 08:13 98.1 F 78 18 121/77 96 11/30/20 04:57 97.9 F 73 20 114/71 92 11/30/20 00:59 97.4 F L 81 20 125/88 96 11/29/20 21:40 97.5 F L 76 18 121/78 98 11/29/20 20:55 97.7 F 98 H 17 118/75 97 11/29/20 20:40 98 H 28 H 118/72 98 11/29/20 20:25 102 H 25 H 118/73 98 11/29/20 20:10 93 H 20 123/55 98 11/29/20 20:06 94 H 15 127/46 99 11/29/20 19:59 97.5 F L 89 17 114/57 98 11/29/20 18:42 99 H 98 11/29/20 16:44 20 11/29/20 12:45 70 123/78 11/29/20 12:00 97.7 F 20 Intake and Output 11/29/20 11/30/20 11/30/20 23:59 07:59 15:59 Intake Total 950 120 360 Output Total 350 1000 Balance 600 -880 360 Intake: IV 950 Oral 120 120 Intake, Free Water 240 Output: Urine 350 1000 Indwelling Catheter 1000 Uretheral (Martell) 50 Other: Total, Intake Amount 120 120 Total, Output Amount 1000 Estimated Blood Loss 500 - Exam Breasts: Present: normal, Cardiovascular: Present: Regular rate Lungs: Present: Normal air movement Abdomen: Present: normal appearance, soft Uterus: Present: normal, firm, fundal height at umbilicus Extremities: Present: normal Deep Tendon Reflex Grade: Normal +2 Incision: Present: normal, dry, intact
[2020-11-30] MEDS: IBUPROFEN 800 MG TAB PO PRN (21:35)
[2020-12-01] MEDS ORDERED: HYDROcodone/ACETAMINOPHEN 5-325 MG TAB PO PRN (04:20)
[2020-12-01] MEDS: KETOROLAC 30 MG/1 ML INJ IV SCH ×2 (04:27→12:30)
[2020-12-01] MEDS: IBUPROFEN 800 MG TAB PO PRN ×2 (05:59→12:30)
--- NOTE | 2020-12-01 06:02 | Discharge Summary ---
Providers - Providers Date of Admission: 11/28/20 08:20 Date of discharge: 12/01/20 (desires d/c home today) Attending physician: KAY MAKI 11/29/20 22:08 Consult to General Matcher [CONS] Routine Reason For Exam: Primary care physician: KAY MAKI Hospitalization Reason for admission: Induction of labor Condition: Good Pertinent studies: postop H&H Procedures: primary c/s Hospital course: uncomplicated c/s and postop course Disposition: DC-01 TO HOME OR SELFCARE - Discharge Diagnoses (1) RhD negative Status: Acute (2) delivery delivered Status: Acute Core Measure Documentation - Palliative Care Palliative Care/ Comfort Measures: Not Applicable - Core Measures Any of the following diagnoses?: none Exam - Constitutional Vitals: Temp Pulse Resp BP Pulse Ox 98.0 F 92 H 18 108/79 98 11/30/20 23:37 11/30/20 23:37 12/01/20 05:25 11/30/20 23:37 11/30/20 23:37 General appearance: Present: no acute distress, well-nourished - EENT Eyes: Present: PERRL ENT: hearing intact, clear oral mucosa - Neck Neck: Present: supple, normal ROM - Respiratory Respiratory effort: normal Respiratory: bilateral: CTA - Cardiovascular Rhythm: regular Heart Sounds: Absent: rub, click - Extremities Extremities: No edema - Abdominal General gastrointestinal: Present: soft, non-tender, non-distended, normal bowel sounds Female genitourinary: Present: normal - Integumentary Integumentary: Present: clear, warm, dry - Musculoskeletal Musculoskeletal: gait normal, strength equal bilaterally - Psychiatric Psychiatric: appropriate mood/affect, intact judgment & insight - Neurologic Neurologic: CNII-XII intact, moves all extremities - Additional findings Additional findings: lochia scant, fundus frm, incision D&I Plan Activity: advance as tolerated Diet: regular Wound: open to air, keep clean and dry Follow up with: KAY MAKI MD [Primary Care Provider] - 7 Days (Congratulations! Please call [phone] to schedule your incision check in 1 week. Call for any questions or concerns. ) Prescriptions: Ferrous Sulfate [Feosol 325 MG tab] 325 mg PO BID #60 tablet Ibuprofen [Motrin 800 MG tab] 800 mg PO Q6H PRN #30 tablet PRN Reason: Pain oxyCODONE /ACETAMINOPHEN [Percocet 5/325 mg] 1 - 2 tab PO Q6HR PRN #20 tablet PRN Reason: Pain
[2020-12-01] MEDS: PRENATAL VIT27-FE FUMARATE-FOLIC ACID VIT TAB PO SCH (10:28)
[2020-12-01] MEDS: FERROUS SULFATE 325 MG TAB PO SCH (10:28)
[2020-12-01 12:51] VITALS: BP 116/82
== END 2020-12-01 15:55 | disposition home or self-care (01) | DRG 788 ==
LOC: LD 08:27 → TRG 08:27 → LD 11-28 08:20 → OB 11-29 21:30
PROVIDERS: ADMIT Obstetrics & Gynecology; ATTEND Obstetrics & Gynecology
PROC: 10D00Z1 Extraction of Products of Conception, Low, Open Approach (ICD-10-PCS; principal; 2020-11-29)
PROC: 0U900ZZ Drainage of Right Ovary, Open Approach (ICD-10-PCS; 2020-11-29)
PROC: 3E0234Z Introduction of Serum, Toxoid and Vaccine into Muscle, Percutaneous Approach (ICD-10-PCS; 2020-11-30)
DX: O76 Abnormality in fetal heart rate and rhythm complicating labor and delivery (principal); O26.893 Other specified pregnancy related conditions, third trimester; N83.201 Unspecified ovarian cyst, right side; O34.83 Maternal care for other abnormalities of pelvic organs, third trimester; Z3A.41 41 weeks gestation of pregnancy; Z37.0 Single live birth; Z67.31 Type AB blood, Rh negative; Z20.822 Contact with and (suspected) exposure to COVID-19
CPT/HCPCS: 36415; 59200; 74018; 84112; 85014; 85018; 85027; 85460; 85461; 86850; 86900; 86901; G0378; A6250; J0330; J0690; J1100; J1885; J2405; J2704; J2765; J2790; J3010; J3490; J7121; U0003

== ENCOUNTER 2022-05-18 15:14 | Outpatient (CLI) | payer MEDICAID ==
--- NOTE | 2022-05-18 16:56 | Ultrasound Report ---
ULTRASOUND BREAST RIGHT LIMITED, 05/18/2022 CLINICAL INFORMATION / INDICATION: 32-year-old female who presents for evaluation of palpable lump in the upper outer right breast. Patient has palpated mass for 2 months.. TECHNIQUE: Targeted ultrasound evaluation was performed of the area of interest. COMPARISON: None. FINDINGS: The palpable lump in the right breast corresponds to an oval solid smoothly marginated parallel mass at 11:00, measuring 4.2 x 2.4 x 3.0 cm, 4 cm from nipple. Additionally, there is a similar oval solid parallel mass with smooth margins in the medial subareolar right breast measuring 2.4 x 1.8 x 2.3 cm . There is an incidental round hypoechoic mass at 10:00, 10 cm from nipple measuring 7 x 6 mm. IMPRESSION: Multiple solid masses are seen throughout the right breast, as outlined above. The palpab le lump at 11:00 as well as the incidental mass in the subareolar right breast both have an appearanc e very suggestive for benign fibroadenomas. A 6 month follow-up right breast ultrasound is recommende d to confirm stability of all 3 findings. Follow up recommendation: Short term follow up in 6 months. BI-RADS Category 3: PROBABLY BENIGN. Followup in 6 months. A normal or "negative" report should not preclude biopsy or follow-up of a clinically suspicious find ing. Signer Name: Afia Hughes MD Signed: 05/18/2022 4:52 PM Workstation Name: [id number]
== END 2022-05-18 15:15 | disposition home or self-care (01) ==
LOC: US 15:14
PROVIDERS: ATTEND Obstetrics & Gynecology
DX: N63.11 Unspecified lump in the right breast, upper outer quadrant (principal); N63.12 Unspecified lump in the right breast, upper inner quadrant